=== PATIENT | male | born 1975 | race Caucasian/White ===

== ENCOUNTER 2017-08-05 22:56 | Emergency (ER) | payer SELFPAY ==
[~2017-08-05] VITALS: Ht 170.2 cm; Wt 81.0 kg
[2017-08-05] MEDS ORDERED: INSNOV SQ (23:01)
[2017-08-05 23:07] VITALS: BP 147/96
[2017-08-05] MEDS ORDERED: IBUPROFEN 800 MG TABLET PO ONE (23:30)
[2017-08-05] MEDS ORDERED: BACITRACIN 0.9 GM PACKET OINTMENT TP ONE (23:45)
== END 2017-08-06 00:02 | disposition home or self-care (01) ==
LOC: EMS 23:00
DX: S92.531A Displaced fracture of distal phalanx of right lesser toe(s), initial encounter for closed fracture (principal); E11.9 Type 2 diabetes mellitus without complications; Z79.4 Long term (current) use of insulin; W20.8XXA Other cause of strike by thrown, projected or falling object, initial encounter; Y93.89 Activity, other specified; Y92.89 Other specified places as the place of occurrence of the external cause; Y99.8 Other external cause status
CPT/HCPCS: 99284